=== PATIENT | male | born 1970 | race Caucasian/White ===

== ENCOUNTER 2018-04-09 08:00 | Emergency (ER) | payer OTHER ==
[2018-04-09 08:33] VITALS: BP 121/81
--- NOTE | 2018-04-09 08:56 | UC ---
Laceration HPI - HPI Summary HPI Summary: laceration left index finger x 1 day ago cut his left index finger on table saw yesterday morning has been applying pressure dressing - History Of Current Complaint Chief Complaint: UCLaceration Stated Complaint: LEFT INDEX FINGER LACERATION Time Seen by Provider: 04/09/18 08:44 Hx Obtained From: Patient Laceration Location: Finger - left index finger Mechanism Of Injury: Sharp Trauma - table saw Onset/Duration: Sudden Onset, Lasting Days - 1, Still Present Severity: Moderate Pain Intensity: 1 Aggravating Factors: Position, Other: - touch - Allergies/Home Medications Allergies/Adverse Reactions: Allergies Allergy/AdvReac Type Severity Reaction Status Date / Time No Known Allergies Allergy Verified 04/09/18 08:27 Home Medications: Home Medications NK [No Home Medications Reported] 04/09/18 [History Confirmed 04/09/18] PMH/Surg Hx/FS Hx/Imm Hx Previously Healthy: Yes - Surgical History Surgical History: None - Family History Known Family History: Negative: Diabetes, Blood Disorder - Social History Alcohol Use: None Substance Use Type: None Smoking Status (MU): Never Smoked Tobacco - Immunization History Most Recent Tetanus Shot: DECEMBER 2017 Review of Systems Constitutional: Negative Skin: Negative Eyes: Negative ENT: Negative Respiratory: Negative Is Patient Immunocompromised?: No All Other Systems Reviewed And Are Negative: Yes Physical Exam Triage Information Reviewed: Yes Appearance: Well-Appearing, No Pain Distress, Well-Nourished Vital Signs: Initial Vital Signs Temp 98 F 04/09/18 08:28 Pulse 69 04/09/18 08:28 Resp 18 04/09/18 08:28 BP 121/81 04/09/18 08:28 Pulse Ox 99 04/09/18 08:28 Vital Signs Reviewed: Yes Eyes: Positive: Conjunctiva Clear ENT: Positive: Normal ENT inspection, Hearing grossly normal, Pharynx normal Neck: Positive: Supple, Nontender, No Lymphadenopathy Respiratory: Positive: Chest non-tender, Lungs clear, Normal breath sounds Cardiovascular: Positive: RRR, No Murmur Skin: Positive: Other - laceration left index finger, distal phalangs, partial avultion of finger nail , old laceration more than 24 hrs, no need to repair , tendons are intact Laceration Course/Dx - Differential Dx - Laceration/Wound Provider Diagnoses: laceration left indext finger Discharge - Sign-Out/Discharge Documenting (check all that apply): Patient Departure All imaging exams completed and their final reports reviewed: No Studies - Discharge Plan Condition: Stable Disposition: HOME Patient Education Materials: Laceration Without Closure (ED) Referrals: No Primary Care Phys,NOPCP [Primary Care Provider] - 5 Days - Billing Disposition and Condition Condition: STABLE Disposition: Home
== END 2018-04-09 09:11 | disposition home or self-care (01) ==
LOC: UCCORT 08:00
DX: S61.211A Laceration without foreign body of left index finger without damage to nail, initial encounter (principal); W45.8XXA Other foreign body or object entering through skin, initial encounter; Y92.9 Unspecified place or not applicable
CPT/HCPCS: 99202; G0463